=== PATIENT | male | born 1940 | race African-American/Black ===

== ENCOUNTER → 2016-08-27 | Outpatient (CLI) | payer MEDICARE, BC ==
[2016-08-28 10:20] LABS: PROSTATE SPECIFIC ANTIGEN 3.1 ng/mL (0.0-4.0); PSA % FREE 34.8 % (.); PSA FREE 1.08 ng/mL
== END ==
LOC: OD 08:29
PROVIDERS: ATTEND Urology
DX: N45.1 Epididymitis (principal)
CPT/HCPCS: 36415; 84154